=== PATIENT | male | born 1980 | race Two or more races ===

== ENCOUNTER 2024-06-19 10:46 | Inpatient (IN) | payer MEDICAID ==
[~2024-06-19] VITALS: Ht 182.9 cm; Wt 108.4 kg
[2024-06-19 11:57] VITALS: PULSE 85; RESP 16; O2SAT 98
[2024-06-19] MEDS: HYDROcodone-ACET 10/325MG TAB PO ONE (12:08)
[2024-06-19 12:10] LABS: Basophils # (auto) 0.1 10 ^3/uL (0-0.2); Basophils % (auto) 0.9 % (0.0-2.0); Eosinophils # (auto) 0 10 ^3/uL (0-0.8); Eosinophils % (auto) 0.7 % (0.0-7.0); Hematocrit 46.4 % (41.0-53.0); Hemoglobin 16.3 g/dL (13.5-17.5); Lymphocytes # (auto) 1.8 10 ^3/uL (0.4-5.4); Lymphocytes % (auto) 28.3 % (10.0-50.0); Mean Corpuscular Hemoglobin 29.9 pg (28.0-32.0); Mean Corpuscular Hgb Conc. 35.2 g/dL (32.0-36.0); Mean Corpuscular Volume 85.1 fL (80.0-100.0); Monocytes # (auto) 0.4 10 ^3/uL (0-1.3); Monocytes % (auto) 6.2 % (0.0-12.0); Neutrophils # (auto) 4.1 10 ^3/uL (1.6-8.6); Neutrophils % (auto) 63.9 % (37.0-80.0); Red Blood Cells 5.45 10^6/uL (4.5-5.90); Red Cell Distribution Width 13.2 % (11.8-14.3); White Blood Cell 6.4 10^3/uL (4.4-10.8)
[2024-06-19 12:18] LABS: Chloride 108 mmol/L (98-107); Potassium 4.2 mmol/L (3.5-5.1); Sodium 140 mmol/L (136-145)
[2024-06-19 12:19] LABS: Anion Gap 6 (5-15); Calcium 9.9 mg/dL (8.7-10.4); Carbon Dioxide 26 mmol/L (20-30)
[2024-06-19 12:24] LABS: Blood Urea Nitrogen 10 mg/dL (9-23); Glucose 103 mg/dL (74-106)
[2024-06-19] MEDS ORDERED: ONDANSETRON HCL 4 MG/2 ML VIAL IV PRN (15:15)
[2024-06-19] MEDS ORDERED: ACETAMINOPHEN 325 MG TAB PO PRN (15:15)
[2024-06-19] MEDS ORDERED: HYDROmorphone HCL 2 MG/ML VL/or syr IV PRN (15:15)
[2024-06-19] MEDS ORDERED: DOCUSATE SOD 100 MG CAP PO PRN (15:15)
[2024-06-19] MEDS: HYDROcodone-ACET 5/325MG TAB PO PRN (18:37)
[2024-06-19] MEDS: SODIUM CHLOR 0.9% PF (SALINE LOCK) 10ML VIAL/SYR IV SCH (22:05)
[2024-06-20 01:00] VITALS: BP 118/81; PULSE 68; RESP 17; TEMP 97.5; O2SAT 97
[2024-06-20 05:00] VITALS: BP 127/85; PULSE 66; RESP 15; TEMP 97.6; O2SAT 96
[2024-06-20 08:00] VITALS: PULSE 60; RESP 16; O2SAT 96
[2024-06-20 08:19] VITALS: BP 121/87; PULSE 60; RESP 15; TEMP 97.4; O2SAT 96
[2024-06-20] MEDS: ENOXAPARIN SOD 40 MG/0.4 ML SYRINGE SC SCH (09:26)
[2024-06-20 12:49] VITALS: BP 136/90; PULSE 84; RESP 16; TEMP 97.7; O2SAT 99
== END 2024-06-20 15:10 | disposition left against medical advice (07) | DRG 351 ==
LOC: ER 10:46 → OVERFLOW 15:16 → CENTRAL 22:18
PROVIDERS: ADMIT Internal Medicine; ATTEND Family Medicine
DX: S86.112A Strain of other muscle(s) and tendon(s) of posterior muscle group at lower leg level, left leg, initial encounter (principal); M51.16 Intervertebral disc disorders with radiculopathy, lumbar region; Z53.29 Procedure and treatment not carried out because of patient's decision for other reasons; Z79.899 Other long term (current) drug therapy; X58.XXXA Exposure to other specified factors, initial encounter; Y93.89 Activity, other specified; Y92.89 Other specified places as the place of occurrence of the external cause; Y99.8 Other external cause status
CPT/HCPCS: 36415; 72100; 73562; 80048; 85025; 85379; 93971; 96374; G0378